=== PATIENT | female | born 1955 | race Caucasian/White ===

== ENCOUNTER → 2024-12-02 10:25 | Outpatient (REF) | payer MEDICARE, SELFPAY ==
[2024-12-02 10:46] VITALS: BP 123/78; BP_SYST 60; BMI 33.3
== END ==
LOC: RADI 10:25
PROVIDERS: ATTENDING PHYSICIAN Nurse Practitioner Family; FAMILY PHYSICIAN Family Medicine
DX: E04.2 Nontoxic multinodular goiter (principal)
CPT/HCPCS: 88173; 10005; 10006